=== PATIENT | male | born 1945 | race Native Hawaiian/Other Pacific Islander ===

== ENCOUNTER 2022-01-10 14:32 | Outpatient (CLI) | payer OTHER | END 2022-01-10 20:10 | disposition home or self-care (01) | LOC: RAD 14:32 | PROVIDERS: ATTEND Physician Assistant | DX: M25.511 Pain in right shoulder (principal) ==

== ENCOUNTER 2022-06-06 14:15 | Outpatient (CLI) | payer OTHER | END 2022-06-06 19:00 | disposition home or self-care (01) | LOC: RAD 14:15 | PROVIDERS: ATTEND Physician Assistant | DX: M25.511 Pain in right shoulder (principal) ==